=== PATIENT | female | born 1990 ===

== ENCOUNTER 2022-02-25 21:57 | Inpatient (IN) | payer OTHER ==
[2022-02-25] MEDS ORDERED: Water For Irrigation,Sterile 1,000 ML Container IRR PRN (22:33)
[2022-02-25] MEDS ORDERED: Methylergonovine 0.2 MG/1 ML Amp IM PRN (22:33)
[2022-02-25] MEDS ORDERED: Lidocaine 1% 50 ML MDV INJECT PRN (22:33)
[2022-02-25] MEDS ORDERED: Butorphanol 1 MG/ML SDV IVPUSH PRN (22:33)
[2022-02-25] MEDS ORDERED: Sodium Chloride 0.9% 2.5 ML Syringe FLUSH PRN (22:33)
[2022-02-25] MEDS ORDERED: Sodium Chloride 0.9% 20 ML SDV IV PRN (22:33)
[2022-02-25] MEDS ORDERED: Carboprost Tromethamine 250 MCG/1 ML Amp IM PRN (22:33)
[2022-02-25] MEDS ORDERED: Ondansetron 4 MG/2 ML SDV IVPUSH PRN (22:33)
[2022-02-25] MEDS ORDERED: Misoprostol 200 MCG Tab PO PRN (22:33)
[2022-02-25] MEDS ORDERED: Tranexamic Acid 1,000 MG in Sodium Chloride 0.9% 100 ML IV PRN (22:33)
[2022-02-25] MEDS ORDERED: Sodium Chloride 0.9% 10 ML Syringe FLUSH PRN (22:33)
[2022-02-25] MEDS: Lactated Ringers 1,000 ML IV SCH ×2 (22:45→23:58)
[2022-02-25] MEDS ORDERED: Oxytocin/0.9 % Sodium Chloride 30 UNIT/500 ML BAG IV SCH (22:45)
[2022-02-25] MEDS ORDERED: Ropivacaine/PF 400 MG/200 ML PCA ONE (23:37)
[2022-02-25] MEDS ORDERED: Bupivacaine 0.5% 10 ML SDV ONE (23:37)
[2022-02-25] MEDS ORDERED: Ropivacaine HCl/PF 400 MG in Premix Bag 1 BAG EPIDUR SCH (23:45)
[2022-02-25] MEDS ORDERED: Phenylephrine HCl In 0.9% NaCl 1 MG/10 ML Vial IVPUSH PRN (23:50)
[2022-02-25] MEDS ORDERED: ePHEDrine 50 MG/ML SDV IVPUSH PRN (23:50)
[2022-02-26] MEDS ORDERED: Terbutaline 1 MG/ML SDV SUBCUT PRN (03:58)
[2022-02-26] MEDS ORDERED: Oxytocin/0.9 % Sodium Chloride 30 UNIT/500 ML BAG IV SCH (04:00)
[2022-02-26] MEDS ORDERED: Ibuprofen 400 MG Tab PO PRN (05:46)
[2022-02-26] MEDS ORDERED: Measles, Mumps & Rubella Vaccine 0.5 ML SDV SUBCUT ONE (05:46)
[2022-02-26] MEDS ORDERED: oxyCODONE 5 MG Tab PO PRN (05:46)
[2022-02-26] MEDS ORDERED: Witch Hazel Medicated Pads 40/Jar TOP PRN (05:46)
[2022-02-26] MEDS ORDERED: Benzocaine/Menthol 20%-0.5% Spray 78 GM Cannister TOP PRN (05:46)
[2022-02-26] MEDS ORDERED: Acetaminophen 500 MG Tab PO PRN ×2 (05:46)
[2022-02-26] MEDS ORDERED: Bisacodyl 10 MG Supp RECTAL PRN (05:46)
[2022-02-26] MEDS ORDERED: Lanolin 100% Cream 7 GM Tube TOP PRN (05:46)
[2022-02-26] MEDS: Ibuprofen 800 MG Tab PO PRN ×2 (10:25→20:53)
[2022-02-26] MEDS: Docusate Sodium 100 MG Cap PO PRN (20:30)
[2022-02-27] MEDS: Docusate Sodium 100 MG Cap PO PRN (09:35)
== END 2022-02-27 14:00 | disposition home or self-care (01) | DRG 807 ==
LOC: MW.OBCHECK 21:57 → MW.OB 22:03 → MW.OBCHECK 22:33 → MW.OB 22:33 → OBSVTOIN 02-26 05:22 → MW.OB 02-26 09:08
PROVIDERS: ADMIT Obstetrics & Gynecology; ATTEND Obstetrics & Gynecology
PROC: 10D07Z6 Extraction of Products of Conception, Vacuum, Via Natural or Artificial Opening (ICD-10-PCS; principal; 2022-02-26)
PROC: 0UQGXZZ Repair Vagina, External Approach (ICD-10-PCS; 2022-02-26)
PROC: 3E0R3BZ Introduction of Anesthetic Agent into Spinal Canal, Percutaneous Approach (ICD-10-PCS; 2022-02-26)
PROC: 00HU33Z Insertion of Infusion Device into Spinal Canal, Percutaneous Approach (ICD-10-PCS; 2022-02-26)
DX: O76 Abnormality in fetal heart rate and rhythm complicating labor and delivery (principal); Z37.0 Single live birth; O77.0 Labor and delivery complicated by meconium in amniotic fluid; Z3A.38 38 weeks gestation of pregnancy; O70.0 First degree perineal laceration during delivery; Z20.822 Contact with and (suspected) exposure to COVID-19
CPT/HCPCS: 01967; 36415; 51702; 59025; 59409; 82803; 85014; 85018; 85027; 86592; 86850; 86900; 86901; A9270-GY; J2590; J2795; J3490; J7120; U0002